=== PATIENT | female | born 1975 | race Caucasian/White ===

== ENCOUNTER 2017-08-16 11:07 | Day surgery (SDC) | payer MEDICAID ==
[~2017-08-16 11:07] MED LIST: BUPIVACAINE /PF 0.25% 30 ML VIAL INJ ONE; IOPAMIDOL 50 ML VIAL IV ONE; LIDOCAINE PF 2%, 200 MG/10 ML AMPUL.LUER (EPIDURAL) INJ ONE; NS 50 ML BAG IV ONE; methylPREDNISolone ACETATE 80 MG/ML ONE
[2017-08-16 11:32] LABS: HCG,QUAL RESULT NEGATIVE (NEGATIVE)
[2017-08-16] MEDS ORDERED: DIPHENHYDRAMINE INJ 50 MG/ML VIAL ONE (12:10)
[2017-08-16] MEDS ORDERED: IOHEXOL 50 ML IV ONE (12:40)
[2017-08-16] MEDS: MIDAZOLAM HCL 5 MG/5 ML VIAL ONE ×3 (13:24→13:29)
[2017-08-16 16:47] VITALS: BP_SYST 117
[2017-08-16] MEDS ORDERED: MIDAZOLAM HCL 5 MG/5 ML VIAL IVP PRN (18:00)
[2017-08-16] MEDS ORDERED: DIPHENHYDRAMINE INJ 50 MG/ML VIAL IVP ONE (18:00)
[2017-08-16] MEDS ORDERED: LR 1,000 ML IV ONE (18:00)
== END 2017-08-16 14:35 | disposition home or self-care (01) ==
LOC: SDS 11:07 → SMU 12:05 → SDS 14:35
PROVIDERS: ATTEND Internal Medicine
DX: M50.10 Cervical disc disorder with radiculopathy, unspecified cervical region (principal); E03.9 Hypothyroidism, unspecified; E11.9 Type 2 diabetes mellitus without complications; E78.5 Hyperlipidemia, unspecified; Z98.890 Other specified postprocedural states; Z79.84 Long term (current) use of oral hypoglycemic drugs; Z79.899 Other long term (current) drug therapy; M54.5 Low back pain
CPT/HCPCS: 62323; 82962; 84703; J1040; J1200; J2001; J2250; J3490; J7120; Q9967; 77003

== ENCOUNTER 2018-05-23 10:27 | Emergency (ER) | payer MEDICAID ==
[~2018-05-23] VITALS: Ht 160 cm; Wt 99.8 kg
[2018-05-23 10:27] VITALS: BP_SYST 182
--- NOTE | 2018-05-23 10:27 | NUR ---
BROUGHT BACK TO BED #8 AND TRIAGED, REPORT GIVEN TO EDEL
--- NOTE | 2018-05-23 10:56 | NUR ---
PRECIOUS Erickson at bedside examining patient.
[2018-05-23] MEDS ORDERED: CYCLOBENZAPRINE HCL 10 MG TABLET (FLEXERIL) PO ONE (11:00)
[2018-05-23] MEDS ORDERED: KETOROLAC TROMETHAMINE 30 MG VIAL IM ONE (11:00)
--- NOTE | 2018-05-23 11:00 | NUR ---
Patient presented to the ER with severe lower back pain. Patient A&Ox4, afebrile, respirations equal bilat, pain 7/10 to back and neck. Patient states she fell sunday night in [place], she slipped on ice. Patient states pain started sunday morning after traveling back home. Patient states she has been taking ibuprofen 600 mg. Today the back and neck pain became too severe and decided to come to ER to be evaluated.
--- NOTE | 2018-05-23 11:30 | NUR ---
Patient to xray with radiology staff.
[2018-05-23 12:04] VITALS: BP_SYST 174
--- NOTE | 2018-05-23 12:05 | NUR ---
Patient given written and verbal discharge instructions and verbalizes understanding. ER MD discussed with patient the results and treatment provided. Patient in stable condition. ID arm band removed. Rx of Flexeryl and Pass Christian 5/325mg given. Patient educated on pain management and to follow up with PMD. Pain Scale 3/10 tolerable for patient . Opportunity for questions provided and answered. Medication side effect fact sheet provided.
== END 2018-05-23 12:04 | disposition home or self-care (01) ==
LOC: SED 10:27
DX: S39.012A Strain of muscle, fascia and tendon of lower back, initial encounter (principal); R03.0 Elevated blood-pressure reading, without diagnosis of hypertension; E11.9 Type 2 diabetes mellitus without complications; Z88.1 Allergy status to other antibiotic agents; Z88.6 Allergy status to analgesic agent; W01.0XXA Fall on same level from slipping, tripping and stumbling without subsequent striking against object, initial encounter; Y93.89 Activity, other specified; Y92.89 Other specified places as the place of occurrence of the external cause; Y99.8 Other external cause status
CPT/HCPCS: 72100; 72220; 99283; 96372; J1885

== ENCOUNTER 2018-06-27 10:01 | Emergency (ER) | payer MEDICAID ==
[~2018-06-27] VITALS: Ht 162.6 cm; Wt 99.8 kg
[2018-06-27 10:02] VITALS: BP_SYST 129
--- NOTE | 2018-06-27 10:02 | NUR ---
Placed in room 8. Placed on color television console monitor, blood pressure machine and pulse oximeter. To gown for exam. Side rails up. Report given to Del FERMIN.
--- NOTE | 2018-06-27 10:15 | NUR ---
PT PRESENTS TO ED C/O INTERMITTENT CHEST PAIN AND LEG PAIN.PT H/O NIDDM AND HYPOTHYROID.
--- NOTE | 2018-06-27 10:22 | NUR ---
ER at bedside examining patient.
[2018-06-27 11:02] LABS: CALCIUM 9.4 mg/dL (8.4-11.0); CREATININE 0.82 mg/dL (0.55-1.30); POTASSIUM 3.6 mmol/L (3.5-5.1)
[2018-06-27 11:06] LABS: INR 0.9 (0.8-1.2); PROTHROMBIN TIME 9.7 SECS (9.5-12.5)
[2018-06-27 11:08] LABS: ALBUMIN 3.9 g/dL (3.4-4.8); TOTAL BILIRUBIN 0.2 mg/dL (0.0-1.0)
--- NOTE | 2018-06-27 11:10 | NUR ---
urine specimen collected.
[2018-06-27 11:11] LABS: BASOPHILS % (AUTO) 0.5 % (0.0-2.0); EOSINOPHILS # (AUTO) 0.2 K/uL (0.0-0.4); EOSINOPHILS % (AUTO) 2.3 % (0.0-4.0); HEMATOCRIT 37.6 % (36-48); HEMOGLOBIN 12.4 g/dL (12.0-16.0); LYMPHOCYTES # (AUTO) 2.3 K/uL (1.0-5.5); LYMPHOCYTES % (AUTO) 27.5 % (20.5-51.5); MEAN CORPUSCULAR HEMOGLOBIN 29 pg (27-31); MEAN CORPUSCULAR HGB CONC 33 % (32-36); MEAN CORPUSCULAR VOLUME 88 fL (79.0-98.0); MONOCYTES # (AUTO) 0.4 K/uL (0.0-1.0); MONOCYTES % (AUTO) 4.4 % (1.7-9.3); NEUTROPHILS # (AUTO) 5.5 K/uL (1.8-7.7); NEUTROPHILS % (AUTO) 65.3 % (40.0-70.0); PLATELET COUNT (AUTO) 319 K/uL (130-430); RED BLOOD CELL COUNT(AUTO) 4.29 MIL/uL (4.2-6.2); RED CELL DISTRIBUTION WIDTH 15.7 % (9.0-15.0); WHITE BLOOD COUNT (AUTO) 8.4 K/uL (4.8-10.8)
--- NOTE | 2018-06-27 12:07 | NUR ---
Patient given written and verbal discharge instructions and verbalizes understanding. ER MD discussed with patient the results and treatment provided. Patient in stable condition. ID arm band removed. No Rx given. Patient educated on pain management and to follow up with PMD. Pain Scale 3/10. Opportunity for questions provided and answered. Medication side effect fact sheet provided.
[2018-06-27 12:08] VITALS: BP_SYST 147
== END 2018-06-27 12:07 | disposition home or self-care (01) ==
LOC: SED 10:01
DX: R07.89 Other chest pain (principal); E11.9 Type 2 diabetes mellitus without complications; K21.9 Gastro-esophageal reflux disease without esophagitis; R03.0 Elevated blood-pressure reading, without diagnosis of hypertension; Z90.89 Acquired absence of other organs; Z98.51 Tubal ligation status; Z88.1 Allergy status to other antibiotic agents
CPT/HCPCS: 36415; 71045; 80053; 81025; 84484; 85025; 85379; 85610-TC; 85730-TC; 93005; 99284